=== PATIENT | female | born 1950 | race Caucasian/White ===

== ENCOUNTER 2021-11-04 09:58 | Observation (INO) ==
[2021-11-04] MEDS ORDERED: CeFAZolin Syr 3,000MG/30 ML 3,000 MG/30 ML SYRINGE IVPB ONE (10:29)
[2021-11-04] MEDS ORDERED: Ringers Solution, Lactated 1,000 ML IVC SCH (10:30)
[2021-11-04] MEDS ORDERED: *HR* OxyCODONE Immed Rel 5 MG TABLET PO PRN (12:12)
[2021-11-04] MEDS ORDERED: *HR* Promethazine 25 MG/ML VIAL IVPB PRN (12:12)
[2021-11-04] MEDS ORDERED: Famotidine 20 MG/2 ML VIAL IVP ONE (12:12)
[2021-11-04] MEDS ORDERED: Pregabalin 75 MG CAPSULE PO ONE (12:12)
[2021-11-04] MEDS ORDERED: Scopolamine Patch 1.5 MG PATCH.TD72 TD ONE (12:12)
[2021-11-04] MEDS ORDERED: *HR* HYDROmorphone 2 MG TABLET PO PRN (12:12)
[2021-11-04] MEDS ORDERED: *HR* HYDROmorphone PF 0.5 MG/0.5 ML SYRINGE IVP PRN (12:12)
[2021-11-04] MEDS ORDERED: *HR* Labetalol 20 MG/4 ML SYRINGE IVP PRN (12:12)
[2021-11-04] MEDS ORDERED: Acetaminophen IV 1,000 MG/100 ML BAG IVPB ONE (12:12)
[2021-11-04] MEDS ORDERED: Promethazine 6.25 MG in Water for inj. (sterile) 20 ML IVPB PRN (12:19)
[2021-11-04] MEDS ORDERED: Ondansetron 4 MG/2 ML VIAL ONE (13:15)
[2021-11-04] MEDS ORDERED: *HR* Propofol 200 MG/20 ML VIAL IVP ONE (13:15)
[2021-11-04] MEDS ORDERED: Lidocaine -MPF 2% 5 ML VIAL ONE (13:15)
[2021-11-04] MEDS ORDERED: Lidocaine HCL 4 ML Topical Solution (Laryng-O-Jet Kit Sterile Pak) TP ONE (13:15)
[2021-11-04] MEDS ORDERED: *HR* FentaNYL (PF) 100 MCG/2 ML VIAL ONE ×2 (13:18→15:23)
[2021-11-04] MEDS ORDERED: EPHEDrine 50 MG/ML VIAL ONE (15:26)
[2021-11-04] MEDS ORDERED: *HR* HYDROMORPHONE 2 MG/ML VIAL ONE (16:37)
[2021-11-04] MEDS ORDERED: *HR* Metoprolol 5 MG/5 ML VIAL IVP PRN (18:34)
[2021-11-04] MEDS ORDERED: D5% in Water 1,000 ML IVC PRN (18:34)
[2021-11-04] MEDS ORDERED: *HR* Dextrose 50 % in Water (Syg) 50 ML SYRINGE IVP PRN (18:34)
[2021-11-04] MEDS ORDERED: Naloxone 0.4 MG/ML INJ IVP PRN (18:34)
[2021-11-04] MEDS ORDERED: Dextrose Gel 15 GM/37.5 ML TUBE PO PRN ×2 (18:34)
[2021-11-04] MEDS ORDERED: Ondansetron 4 MG/2 ML VIAL IVP PRN (18:34)
[2021-11-04] MEDS: Famotidine 20 MG TABLET PO SCH (19:52)
[2021-11-04] MEDS: Scopolamine Patch 1.5 MG PATCH.TD72 TD SCH (19:53)
[2021-11-04] MEDS: Furosemide 40 MG TABLET PO SCH (19:57)
[2021-11-04] MEDS: Metoprolol XL (24 HR) Succ 50 MG TAB.ER.24H PO SCH (19:58)
[2021-11-04] MEDS: Insulin LISPRO 300 UNITS/3 ML VIAL SUBQ SCH (20:03)
[2021-11-05 04:48] LABS: BUN/Creatinine Ratio 31 (6-26); Blood Urea Nitrogen 26 mg/dL (8-23); Calcium 8.6 mg/dL (8.6-10.3); Carbon Dioxide 23 mEq/L (23-29); Chloride 105 mEq/L (98-107); Glucose 184 mg/dL (70-105); Osmolality,Calculated 294 (280-300); Potassium 4.7 mEq/L (3.5-5.1); Sodium 137 mEq/L (136-145); eGFR For African Americans > 60 (> 60); eGFR For Non-African Americans > 60 (> 60)
[2021-11-05] MEDS: DilTIAZem CD (24hr) 120 MG CAP.ER.24H PO SCH (07:58)
[2021-11-05] MEDS: Famotidine 20 MG TABLET PO SCH ×2 (07:58→20:37)
[2021-11-05] MEDS: Furosemide 40 MG TABLET PO SCH ×2 (07:58→18:10)
[2021-11-05] MEDS: Aspirin Enteric Coated 81 MG Tablet PO SCH (07:58)
[2021-11-05] MEDS: Metoprolol XL (24 HR) Succ 50 MG TAB.ER.24H PO SCH ×2 (07:58→20:37)
[2021-11-05] MEDS: GlipiZIDE 5 MG TABLET PO SCH (07:58)
[2021-11-05] MEDS: Insulin LISPRO 300 UNITS/3 ML VIAL SUBQ SCH ×3 (08:22→17:08)
[2021-11-05] MEDS ORDERED: NON-FORMULARY MEDICATION 1 EACH EACH (Ezetimibe [Zetia] 10 MG Tablet) PO SCH (09:00)
[2021-11-05] MEDS ORDERED: Acetaminophen 325 MG TABLET PO PRN (13:09)
[2021-11-05] MEDS ORDERED: *HR* HYDROcodone/Acet 5/325 mg TABLET PO PRN (13:11)
[2021-11-06 03:53] LABS: Calcium 8.5 mg/dL (8.6-10.3); Potassium 4.5 mEq/L (3.5-5.1)
[2021-11-06] MEDS: Insulin LISPRO 300 UNITS/3 ML VIAL SUBQ SCH ×3 (08:32→17:13)
[2021-11-06] MEDS: Metoprolol XL (24 HR) Succ 50 MG TAB.ER.24H PO SCH ×2 (09:08→22:14)
[2021-11-06] MEDS: Furosemide 40 MG TABLET PO SCH ×2 (09:08→17:27)
[2021-11-06] MEDS: Famotidine 20 MG TABLET PO SCH ×2 (09:08→22:14)
[2021-11-06] MEDS: Aspirin Enteric Coated 81 MG Tablet PO SCH (09:08)
[2021-11-06] MEDS: GlipiZIDE 5 MG TABLET PO SCH (09:08)
[2021-11-06] MEDS: DilTIAZem CD (24hr) 120 MG CAP.ER.24H PO SCH (09:09)
[2021-11-06 13:05] LABS: Basophils % 0.2 %; Hematocrit 39.7 % (35.3-44.9); Hemoglobin 12.7 g/dL (11.5-15.4); Immature Granulocytes % 0.3 % (0-4); Lymphocytes # 0.5 K/mcL (0.6-4.6); Mean Corpuscular Hemoglobin 27.8 pg (28.0-33.3); Mean Corpuscular Volume 86.9 fL (83.0-100.0); Mean Platelet Volume 11.6 fL (9.4-12.4); Monocytes # 0.9 K/mcL (0.0-1.3); Monocytes % 14.1 %; Neutrophils # 5.1 K/mcL (1.6-8.9); Platelet Count 162 K/mcL (140-400); Red Blood Count 4.57 M/mcL (3.82-4.97); Red Cell Distribution Width 17.4 % (11.5-14.5); Segmented Neutrophils % 78.4 %; White Blood Count 6.4 K/mcL (4.3-11.1)
[2021-11-06 14:17] LABS: Influenza A PCR Negative (Negative); Influenza B PCR Negative (Negative); Resp. Syncytial Virus PCR Negative (Negative)
[2021-11-06 14:46] LABS: SARS-CoV-2 by PCR (In House) Positive (Negative)
[2021-11-06] MEDS: *HR* Rivaroxaban 10 MG TABLET PO SCH (17:27)
[2021-11-07] MEDS: Aspirin Enteric Coated 81 MG Tablet PO SCH (10:48)
[2021-11-07] MEDS: DilTIAZem CD (24hr) 120 MG CAP.ER.24H PO SCH (10:48)
[2021-11-07] MEDS: GlipiZIDE 5 MG TABLET PO SCH (10:48)
[2021-11-07] MEDS: Insulin LISPRO 300 UNITS/3 ML VIAL SUBQ SCH ×3 (10:50→18:30)
[2021-11-07] MEDS: Furosemide 40 MG TABLET PO SCH ×2 (11:40→18:35)
[2021-11-07] MEDS: Famotidine 20 MG TABLET PO SCH ×2 (11:42→22:14)
[2021-11-07] MEDS: Metoprolol XL (24 HR) Succ 50 MG TAB.ER.24H PO SCH ×2 (11:42→22:15)
[2021-11-07 15:29] LABS: BUN/Creatinine Ratio 34 (6-26); Blood Urea Nitrogen 30 mg/dL (8-23); Calcium 8.8 mg/dL (8.6-10.3); Carbon Dioxide 24 mEq/L (23-29); Chloride 108 mEq/L (98-107); Glucose 100 mg/dL (70-105); Osmolality,Calculated 292 (280-300); Potassium 4.2 mEq/L (3.5-5.1); Sodium 138 mEq/L (136-145); eGFR For African Americans > 60 (> 60); eGFR For Non-African Americans > 60 (> 60)
[2021-11-07] MEDS: Scopolamine Patch 1.5 MG PATCH.TD72 TD SCH (18:35)
[2021-11-07] MEDS: *HR* Rivaroxaban 10 MG TABLET PO SCH (18:35)
[2021-11-08 08:04] VITALS: O2SAT 93
[2021-11-08] MEDS: Insulin LISPRO 300 UNITS/3 ML VIAL SUBQ SCH ×2 (09:30→12:10)
[2021-11-08] MEDS: DilTIAZem CD (24hr) 120 MG CAP.ER.24H PO SCH (10:21)
[2021-11-08] MEDS: Metoprolol XL (24 HR) Succ 50 MG TAB.ER.24H PO SCH (10:21)
[2021-11-08] MEDS: Famotidine 20 MG TABLET PO SCH (10:21)
[2021-11-08] MEDS: Aspirin Enteric Coated 81 MG Tablet PO SCH (10:21)
[2021-11-08] MEDS: Furosemide 40 MG TABLET PO SCH (11:16)
[2021-11-08] MEDS: GlipiZIDE 5 MG TABLET PO SCH (11:16)
[2021-11-08 11:46] VITALS: BP 131/61; PULSE 68; TEMP 97.8
== END 2021-11-08 15:29 ==
LOC: SAMDAY 09:58 → 3ANU 09:58
PROVIDERS: ADMIT Surgery; ATTEND Surgery
PROC: GENSENT (ICD-10-PCS; 2021-11-04 13:20)